=== PATIENT | male | born 1980 | race African-American/Black ===

== ENCOUNTER 2016-10-27 06:51 | Emergency (ER) | payer OTHER ==
--- NOTE | ~2016-10-27 | CR72 ---
[facility] A Service of [facility] & [facility] RADIOLOGY TEXT RESULTS PATIENT: MARILEE ARMENDARIZ LOCATION: [facility] : 82 UNIT #: [id number] AGE: [address]: John Patel MD SEX: M ORDER DR: [id number] [facility] [address] [place], [place] [address] [id number] E MR#: [id number] #: [id number] NAME: MARILEE ARMENDARIZ : 1980 SEX: M STUDY DATE/TIME: 10/27/2016 7:48 UNIT: [facility] ROOM: STUDY DESCRIPTION: CR Chest Single View Portable Attending Physician: Hong Patel M.D. Ordering Physician: Ed Doctor [id number] [facility] Primary Care Physician: Primary Care Physician No MEDICAL IMAGING REPORT This report is preliminary unless electronic signature is present EXAM Portable chest radiograph, 10/27/2016 HISTORY Chest pain this a.m. Short of air. FINDINGS AP radiograph of chest presented. Comparison 06/24/2016. Heart and mediastinum normal in size and contour. Lungs well inflated. No acute pulmonary disease. No pleural effusion, pneumothorax or suspicious nodule. Bony structures unremarkable. Dictated by... Wil Cintron M.D. THIS IS AN ELECTRONICALLY VERIFIED REPORT Wil Cintron M.D. at 10/28/2016 6:42 PM Dillon TD: 10/27/2016 10:04 JOB #: [id number] MEDICAL IMAGING REPORT Page 1 of 1 COPY
--- NOTE | ~2016-10-27 | EKG ---
PATIENT: MARILEE ARMENDARIZ UNIT #: [id number] Ventricular Rate: 58 BPM Atrial Rate: 58 BPM P-R Interval: 162 ms QRS Duration: 86 ms Q-T Interval: 384 ms QTC Calculation(Bezet): 376 ms P Mikado: 49 degrees Calculated R Mikado: 68 degrees Calculated T Mikado: 65 degrees Diagnosis Line: Sinus bradycardia Diagnosis Line: ST and T wave abnormality, consider anterolateral Diagnosis Line: ischemia Diagnosis Line: Abnormal ECG Diagnosis Line: When compared with ECG of 24-JUN-2016 06:43, Diagnosis Line: No significant change was found Diagnosis Line: Confirmed by EM AGARWAL MD ([id number]) on Diagnosis Line: 10/27/2016 11:09:29 AM INTERPRETING SHERON NICHOLAS
[2016-10-27 07:56] LABS: EOSINOPHIL# 0.1 X10e3 (0-0.7); EOSINOPHIL% 2.2 % (0.0-7.0); HEMATOCRIT 41.6 % (38.0-50.0); HEMOGLOBIN 13.6 gm/dL (13.0-16.0); LYMPHOCYTE# 1.2 X10e3 (1.0-3.5); LYMPHOCYTE% 36.5 % (17.0-45.0); MEAN CELL VOLUME 95.6 FL (83-96); MEAN CORPUSCULAR HEMOGLOBIN 31.1 PG (28-34); MEAN CORPUSCULAR HGB CONC 32.6 g/dL (30-36); MEAN PLATELET VOLUME 8.2 FL (6.5-11.5); MONOCYTE# 0.5 X10e3 (0-1.0); MONOCYTE% 14.9 % (3.0-12.0); NEUTROPHIL# 1.5 X10e3 (1.5-7.1); NEUTROPHIL% 45.4 % (40-75); PLATELET COUNT 218 X10e3 (140-420); RED BLOOD COUNT 4.35 X10e (3.90-5.60); RED CELL DISTRIBUTION WIDTH 14.7 % (11.0-15.5); WHITE BLOOD COUNT 3.3 X10e3 (4.0-10.5)
[2016-10-27 07:59] LABS: DIFF IND NO
[2016-10-27 08:00] LABS: POC - CKMB 2.3 ng/mL (0.0-7.9); POC - TROPONIN <0.05 ng/mL (<=0.05)
[2016-10-27 08:18] LABS: CALCIUM SERUM 8.7 mg/dL (8.4-10.2); GLOM FILT RATE Estimated 112.5 mL/min (>60); POTASSIUM 3.3 mmol/L (3.5-5.1)
[2016-10-27 11:38] LABS: POC - CKMB 1.2 ng/mL (0.0-7.9); POC - TROPONIN <0.05 ng/mL (<=0.05)
== END 2016-10-27 11:28 | disposition home or self-care (01) ==
LOC: CED 06:51
PROVIDERS: Emergency Medicine
DX: F41.9 Anxiety disorder, unspecified (principal); R07.9 Chest pain, unspecified; K21.9 Gastro-esophageal reflux disease without esophagitis; F17.210 Nicotine dependence, cigarettes, uncomplicated
CPT/HCPCS: 36415; 71010; 80048; 82553; 84484; 85025; 93005; 99284